=== PATIENT | female | born 1980 | race Caucasian/White ===

== ENCOUNTER → 2021-05-29 | Outpatient (CLI) | payer BC ==
[2006-03-10 07:20] VITALS: PULSE 92; TEMP 98.3
[~2021-05-29] MED LIST: CLARITIN10 MG PO; NUVARING1 ICR VG
== END ==
LOC: MC.RAD 10:00
DX: Z12.31 Encounter for screening mammogram for malignant neoplasm of breast (principal)

== ENCOUNTER → 2023-01-18 | Outpatient (CLI) | payer BC ==
[2006-03-10 07:20] VITALS: PULSE 92; TEMP 98.3
== END ==
LOC: MC.RAD 10:17 → COL.RAD 10:45
DX: Z12.31 Encounter for screening mammogram for malignant neoplasm of breast (principal)